=== PATIENT | female | born 1945 | race Caucasian/White ===

== ENCOUNTER → 2017-01-19 | Emergency (ER) | payer MEDICARE ==
[~2017-01-19] VITALS: Ht 152.4 cm; Wt 77.1 kg
[~2017-01-19] MED LIST: ALLERCLEAR10 MG PO; ASPIRIN EC81 MG PO; ATORVASTATIN CA80 MG PO; BUSPIRONE HCL5 MG PO; CALCIUM + VITA1 EAC2 PO; CALCIUM 500 +1 EAC2 PO; FLUOXETINE HCL40 MG PO; HYDROCHLOROTHIA25 MG PO; LISINOPRIL20 MG PO; METOPROLOL TART50 MG PO; NITROSTAT0.4 MG SL; NORCO 10-325 T1 EACH PO; POTASSIUM CHLO20 ME1 PO; PREMARIN0.625 MG PO; PREMPHASE 0.621 EACH PO; PREVACID15 MG PO; PROAIR HFA8.5 GM INH; SYNTHROID150 MCG PO; TEGRETOL200 MG PO; TIROSINT125 MCG PO; TORSEMIDE20 MG PO; TRAZODONE HCL100 MG PO
--- NOTE | 2017-01-19 10:33 | NUR ---
ER TEAM CALLED FOR PT. HER LATRICE WAS HERE, I CARED FOR HIM AND RELAYED INFORMATION FROM DR AND RN'S. THEY WERE INTEBATING HER, AND INSERTING A WILLIS CATHETER HER SON JACKIE ARRIVED. HE WAS OBVIOUSLY SHAKEN AND DEMANDED TO SEE HIS MOTHER. I EXPLAINED TO HIM HER SITUATION, AND THAT I WOULD BRING THEM BACK SOON STAFF APPROVES. HE RATTLED OFF SEVERAL THINGS HE WANTED TO KNOW, I TOLD HIM I WOULD CHECK AND BE RIGHT BACK. WHEN I GAVE HIM AN UPDATE, HE BEGAN TO CALM SOME. PT HAD AN EXTERNAL PACEMAKER WORKING FOR HER, AND WAS INITIALLY SEDATED TO HELP HER WITH THE PAIN AND P.MAKER IRRITATION. I WAS ABLE TO TAKE THEM TO THE TRAUMA RM, CAUTIONED ABOUT ALL THE MACHINES AND WIRES. JACKIE WENT RIGHT IN, LATRICE STAYED BACK. HE SHARED WITH ME SHE IS 15 YRS OLDER THAN HIM, THEY HAVE BEEN FOR OVER 20 YRS. [employer] WAS CALLED, THE ARTIFICIAL CANDY MAKER VISITED WITH LATRICE AND JACKIE. THISHELPED TREMENDOUSLY WITH LATRICE AND JACKIE'S ANXIETY. HAD PRAYER WITH THEM AND WALKED OUT AND STAYED WITH LATRICE UNTIL [facility]FL[facility] LIFTED OFF. A
--- NOTE | 2017-01-20 07:30 | EKG ---
[facility] [address] [place], [place] [address] Signed Sinus bradycardia with premature atrial complexes Left bundle branch block Abnormal ECG No previous ECGs available Confirmed by MARIKA MICHAUD MD ([id number]) on 01/20/2017 7:29:56 AM Electronically Signed By: MARIKA MICHAUD MD 01/20/17 0730 PATIENT NAME: AMY GRAVES Electrocardiogram DATE OF : 47 PHYSICIAN: MARIKA MICHAUD MD REPORT #: [id number] REPORT IS CONFIDENTIAL AND NOT TO BE RELEASED WITHOUT AUTHORIZATION
== END | disposition home or self-care (01) ==
LOC: ED 06:28
DX: I49.9 Cardiac arrhythmia, unspecified (principal); E87.5 Hyperkalemia; N17.9 Acute kidney failure, unspecified; I11.0 Hypertensive heart disease with heart failure; I50.9 Heart failure, unspecified; J45.909 Unspecified asthma, uncomplicated; F43.10 Post-traumatic stress disorder, unspecified; F32.9 Major depressive disorder, single episode, unspecified; K21.9 Gastro-esophageal reflux disease without esophagitis; Z90.711 Acquired absence of uterus with remaining cervical stump; Z90.49 Acquired absence of other specified parts of digestive tract; Z88.1 Allergy status to other antibiotic agents; Z88.8 Allergy status to other drugs, medicaments and biological substances; Z91.040 Latex allergy status; Z79.82 Long term (current) use of aspirin; Z79.899 Other long term (current) drug therapy
CPT/HCPCS: 31500; 31720; 36600; 71010; 80053; 81001; 82803; 83880; 84484; 85025; 93005; 93010; 94002; 94799; 96374; 96375; 99291; J0330; J0610; J2250; J2270; J2704